=== PATIENT | female | born 1990 | race Caucasian/White ===

== ENCOUNTER 2020-02-10 17:29 | Emergency (ER) | payer SELFPAY ==
[~2020-02-10] VITALS: Ht 170 cm; Wt 145.0 kg
[2020-02-10] MEDS ORDERED: RX-ALBUTEROL INHALER (PROAIR) 8.5 GM IH STA (17:54)
[2020-02-10] MEDS ORDERED: PRD20T PO (18:00)
[2020-02-10] MEDS ORDERED: predniSONE 20 MG TAB PO ONE (18:00)
[2020-02-10] MEDS ORDERED: AZIT250T12 PO (18:00)
[2020-02-10] MEDS ORDERED: ALBU2.5V4 INH (18:00)
[2020-02-10] MEDS ORDERED: CEFDINIR 300 MG (OMNICEF) CAP PO ONE (18:00)
--- NOTE | 2020-02-10 18:00 | ED Cough/URI ---
General Chief Complaint: Cough/Cold/Flu Symptoms Stated Complaint: PRODUCTIVE COUGH/SOB Source: patient Exam Limitations: no limitations History of Present Illness Date Seen by Provider: February 10, 2020 Time Seen by Provider: 17:57 Initial Comments She states her allergies are very bad, just moved to the area. History of asthma. Smokes one pack of cigarettes per day. She is out of her inhaler at home. No fevers now or at any time. Timing/Duration: constant Severity/Quality: productive cough Associated Symptoms: cough, nasal congestion, shortness of breath Allergies and Home Medications Allergies Coded Allergies: Penicillins (Verified Allergy, Unknown, 02/10/20) Patient Home Medication List Home Medication List Reviewed: Yes Review of Systems Review of Systems Constitutional: see HPI; No chills, No fever EENTM: see HPI Respiratory: see HPI, cough Cardiovascular: no symptoms reported Genitourinary: no symptoms reported Musculoskeletal: no symptoms reported Skin: no symptoms reported Psychiatric/Neurological: No Symptoms Reported Hematologic/Lymphatic: No Symptoms Reported Immunological/Allergic: no symptoms reported Past Tuihrga-Pqmmfe-Tmowsn Hx Patient Social History Recent Foreign Travel: No Contact w/Someone Who Travel: No Physical Exam Capillary Refill : Height: '" Weight: lbs. oz. kg; BMI Method: General Appearance: WD/WN, no apparent distress, obese Eyes: Bilateral Eye Normal Inspection, Bilateral Eye PERRL, Bilateral Eye EOMI HEENT: PERRL/EOMI, normal ENT inspection Respiratory: normal breath sounds, no respiratory distress, no accessory muscle use Cardiovascular: regular rate, rhythm, no murmur Gastrointestinal: normal bowel sounds, non tender, soft Neurologic/Psychiatric: alert, normal mood/affect, oriented x 3 Skin: normal color, warm/dry Progress/Results/Core Measures Suspected Sepsis SIRS Temperature: Pulse: Respiratory Rate: Blood Pressure / Mean: Results/Orders My Orders Orders - LEONILA LOVE APRN Chest 1 View, Ap/Pa Only (02/10/20 17:54) Rx-Albuterol Inhaler (Rx-Proair) (02/10/20 17:54) Prednisone Tablet (Deltasone Tablet) (02/10/20 18:00) Cefdinir Capsule (Omnicef Capsule) (02/10/20 18:00) Vital Signs/I&O Capillary Refill : Departure Impression Primary Impression: Bronchitis Disposition: 01 HOME, SELF-CARE Condition: Stable Departure-Patient Inst. Decision time for Depature: 17:58 Referrals: NO,LOCAL PHYSICIAN (PCP/Family) Primary Care Physician Patient Instructions: Acute Bronchitis, Adult (DC) Add. Discharge Instructions: 1. Antibiotics steroid and inhaler as directed. Follow-up with one of local doctors next week. All discharge instructions reviewed with patient and/or family. Voiced understanding. Scripts Azithromycin (Azithromycin) 250 Mg Tablet 250 MG PO UD, #6 TAB TAKE 2 TABLETS ON DAY ONE THEN TAKE 1 TABLET DAILY FOR FOUR MORE DAYS Prov: LEONILA LOVE APRN 02/10/20 Albuterol Sulfate (Albuterol Sulfate) 2.5 Mg/3 Ml Vial.neb 2.5 MG INH Q4H PRN for WHEEZING, #50 EA 1 Refill Prov: LEONILA LOVE APRN 02/10/20 Prednisone (Prednisone) 20 Mg Tab 40 MG PO DAILY, #6 TAB 0 Refills Prov: LEONILA LOVE APRN 02/10/20 LEONILA LOVE APRN February 10, 2020 18:00
[2020-02-10 18:19] VITALS: BP 129/81
--- NOTE | 2020-02-10 18:20 | Diagnostic Imaging Report ---
EXAMINATION: Single view of the chest. INDICATION: Cough. History of asthma. FINDINGS: No focal infiltrate or consolidation evident. There is no effusion or pneumothorax. Heart size and mediastinal contours appear appropriate. Pulmonary vascularity appears normal. There is no current frontal evidence of significant hyperinflation. IMPRESSION: No radiographic evidence of an acute cardiopulmonary process. Dictated by: Dictated on workstation # [id number]
== END 2020-02-10 18:20 | disposition home or self-care (01) ==
LOC: ER 17:31
DX: J45.909 Unspecified asthma, uncomplicated (principal); F17.210 Nicotine dependence, cigarettes, uncomplicated; Z91.14 Patient's other noncompliance with medication regimen; Z88.0 Allergy status to penicillin
CPT/HCPCS: 71045

== ENCOUNTER 2020-09-02 21:53 | Emergency (ER) | payer SELFPAY ==
[~2020-09-02 21:53] MED LIST: ALBU2.5V4 INH; AZIT250T12 PO; PRD20T PO
== END 2020-09-02 22:16 | disposition left against medical advice (07) ==
LOC: EDUNIT# 21:53 → ER 21:58
DX: R43.0 Anosmia (principal); R06.7 Sneezing